=== PATIENT | female | born 1955 | race Caucasian/White ===

== ENCOUNTER → 2020-10-23 13:17 | Outpatient (ROUT) | payer OTHER, SELFPAY ==
[2020-10-23 13:33] LABS: COVID19 -Nasal RAPID POSITIVE (Negative)
== END ==
PROVIDERS: Visit Provider Family Medicine
DX: U07.1 COVID-19 (principal)
CPT/HCPCS: 87635

== ENCOUNTER → 2023-11-03 13:15 | Outpatient (ROUT) | payer OTHER, SELFPAY ==
[2023-11-03 13:23] LABS: Add Manual Diff / Slide Review NO; Basophils Absolute Auto 0 /uL (0-100); Basophils Percent Auto 0.6 % (0-2); Eosinophils Absolute Auto 100 /uL (0-450); Eosinophils Percent Auto 1.6 % (2-4); Hematocrit 39.6 % (36-46); Hemoglobin 13.1 g/dL (12.0-16.0); Lymphocytes Absolute Auto 1600 /uL (1100-4500); Lymphocytes Percent Auto 33.7 % (25-40); Mean Corpuscular HGB Conc 33.1 % (30-36); Mean Corpuscular Hemoglobin 29.6 PG (26-34); Mean Corpuscular Volume 89.6 fL (80-100); Monocytes Absolute Auto 500 /uL (0-900); Monocytes Percent Auto 10.3 % (3-14); Neutrophils Absolute Auto 2600 /uL (1500-7000); Neutrophils Percent Auto 53.8 % (50-75); Platelet Count 304 X10^3/uL (150-400); Red Blood Cell Count 4.42 X10^6/uL (4.0-5.2); Red Cell Distribution Width 13.9 % (11.6-14.8); White Blood Cell Count 4.8 X10^3/uL (4.5-11.0)
[2023-11-03 13:41] LABS: Alanine Aminotransferase 22 IU/L (<35); Albumin 4.3 g/dL (3.5-5.0); Albumin Globulin Ratio 1.4 (1.0-2.8); Alkaline Phosphatase 69 U/L (38-126); Aspartate Aminotransferase 28 IU/L (14-36); Bilirubin Total 0.7 mg/dL (0.2-1.3); Blood Urea Nitrogen 13 mg/dL (7-17); Calcium 9.6 mg/dL (8.4-10.2); Carbon Dioxide 31 mmol/L (22-32); Chloride 102 mmol/L (98-107); Cholesterol 211 mg/dL (140-199); Estimated Glomerular Filt Rate > 60 mL/min (>60); Glucose 91 mg/dL (80-110); HDL Cholesterol 59 mg/dL (40-60); HEMOLYSIS < 15 (0-50); LDL Cholesterol Calculated 130 mg/dL (<100); Potassium 4.8 mmol/L (3.4-5.1); Sodium 136 mmol/L (137-145); Total Protein 7.3 g/dL (6.3-8.2); Triglycerides 112 mg/dL (35-150)
[2023-11-03 13:44] LABS: High Sensitivity CRP - Cardiac 1.1 mg/L (1.0-3.0)
[2023-11-03 13:47] LABS: Erythrocyte Sedimentation Rate 5 MM/HR (0-20)
[2023-11-03 14:12] LABS: Thyroid Stimulating Hormone 2.23 uIU/mL (0.47-4.68)
== END ==
PROVIDERS: Visit Provider Family Medicine
DX: Z00.00 Encounter for general adult medical examination without abnormal findings (principal); M85.80 Other specified disorders of bone density and structure, unspecified site; R09.89 Other specified symptoms and signs involving the circulatory and respiratory systems; R68.84 Jaw pain
CPT/HCPCS: 80053; 80061; 84443; 85025; 85651; 86140

== ENCOUNTER → 2023-11-07 12:14 | Outpatient (CLI) | payer OTHER, SELFPAY ==
--- NOTE | 2023-11-07 12:17 | DI.US.S_ITS ---
PROCEDURE: US PELVIC COMPLETE INDICATIONS: Excessive bleeding Bruit R CAROTID TECHNIQUE: Real-time scanning was performed of the pelvic organs, with image documentation. Additional endovaginal scanning was necessary due to incomplete visualization of the adnexal and endometrial structures by transabdominal scanning. COMPARISON: None. FINDINGS: Uterus: Uterus is anteverted and normal in size at 6.1 x 5.0 x 3.7 cm. The myometrium is homogeneous. The endometrium measures 22 mm combined thickness. Endometrium is heterogeneous. Possible filling defect with vascular stalk measuring 1.4 x 1.8 x 1.3 cm. Ovaries: The right ovary measures 2.3 x 1.9 x 1.6 cm, with a calculated ovarian volume of 3.7 cc. Left ovary not visualized due to atrophy. Simple appearing right ovarian cystic lesion measuring 0.8 x 0.9 x 0.8 cm. Other: No pathologic free abdominal or pelvic fluid. IMPRESSION: Thickened endometrium, with heterogeneous appearance. Possible filling defect with a vascular stalk measuring 1.4 x 1.8 x 1.3 cm, possibly a polyp. Malignancy is also consideration. Consider tissue sampling. O-RADS 2 right ovarian cyst. We strive to produce accurate, complete, and clear reports of imaging services. To assist us in improving patient care, this report was composed using standard report templates and voice recognition software. Therefore, it may contain abnormal punctuation, insertions and/or omissions. Occasional wrong-word or sound-alike substitutions may occur. Though we review the report and make efforts to correct it, we do recommend that the report be read carefully in proper context to recognize any text inaccuracies. Dictated by: Carlos Orr M.D. on 11/07/2023 at 16:56 Approved by: Carlos Orr M.D. on 11/07/2023 at 16:58
--- NOTE | 2023-11-07 12:17 | DI.US.S_ITS ---
PROCEDURE: US CAROTID DOPPLER BI INDICATIONS: Excessive bleeding Bruit R CAROTID TECHNIQUE: Color and pulse Doppler interrogation was performed of both carotid systems, with image documentation and velocity measurements. COMPARISON: None. FINDINGS: Stenosis calculations are based on SRU (Society of Radiologists in Ultrasound) criteria. Right side: Brachial blood pressure: 142/74 mm Hg. Common carotid artery peak systolic velocity: 84 cm/sec. Internal carotid artery peak systolic velocity: 110 cm/sec. Internal carotid artery end diastolic velocity: 41 cm/sec. External carotid artery peak systolic velocity: 65 cm/sec. ICA/CCA peak systolic ratio: 1.3 . Amador scale imaging description: No significant plaque Percent internal carotid artery stenosis: Less than 50 percent stenosis . Vertebral artery: Flow direction is antegrade. Left side: Brachial blood pressure: 134/71 mm Hg. Common carotid artery peak systolic velocity: 109 cm/sec. Internal carotid artery peak systolic velocity: 116 cm/sec. Internal carotid artery end diastolic velocity: 61 cm/sec. External carotid artery peak systolic velocity: 95 cm/sec. ICA/CCA peak systolic ratio: 0.9 . Amador scale imaging description: No significant atherosclerotic plaque Percent internal carotid artery stenosis: Less than 50 percent stenosis . Vertebral artery: Flow direction is antegrade. IMPRESSION: Less than 50 percent stenosis of the internal carotid arteries bilaterally. Dictated by: Earl Arango M.D. on 11/07/2023 at 14:49 Approved by: Earl Arango M.D. on 11/07/2023 at 14:52
== END ==
LOC: US 12:16
PROVIDERS: Referring Provider Family Medicine; Visit Provider Family Medicine
DX: I65.23 Occlusion and stenosis of bilateral carotid arteries (principal); R09.89 Other specified symptoms and signs involving the circulatory and respiratory systems; N95.0 Postmenopausal bleeding; R93.89 Abnormal findings on diagnostic imaging of other specified body structures; N83.201 Unspecified ovarian cyst, right side
CPT/HCPCS: 76830; 76856; 93880

== ENCOUNTER 2024-01-09 12:28 | Day surgery (SDC) | payer OTHER, SELFPAY ==
[2024-01-08 15:16] VITALS: BMI 28.8
--- NOTE | 2024-01-09 | PATH_ITS ---
[facility] Accession Number: [id number] No. of containers..02 Tissue . 01 Material submitted: . PART A: endocervix - ENDOCERVICAL CURETTINGS PART B: endometrium - ENDOMETRIAL CURETTINGS . 01 Diagnosis: A. ENDOCERVICAL CURETTINGS: Minute neoplastic tissue fragments morphologically similar to those in the endometrial tumor (part B). Background fibroglandular tissue and detached strips of glandular epithelium; negative for significant atypia. . B. ENDOMETRIAL CURETTINGS: Adenocarcinoma, favor endometrial origin, endometrioid type. Favor FIGO Grade 2-3. Focal clear cell change and squamous differentiation are present. ENZO 01/15/2024 1625 Local . 01 Comment: Part B: As part of ongoing quality control chemist, this case is also reviewed by Dr. Makenzie Jacobsen, who concurs with the given interpretation. . Dr. Maribell Recinos discussed results with Dr. Delmar Ibanez's triage nurse, on 01-15-24 at approximately 3:45 p.m. . 01 Electronically signed: . Maribell Recinos MD, Pathologist NPI- [id number] . 01 Gross description: . Part A: ENDOCERVICAL CURETTINGS: Received in formalin are minute fragments of mucoid and hemorrhagic material measuring 1.5 x 1.5 x 0.2 cm in aggregate. Submitted in toto in 1 cassette. Part B: ENDOMETRIAL CURETTINGS: Received in formalin are minute fragments of mucoid and hemorrhagic material measuring 2.0 x 2.0 x 0.4 cm in aggregate. Submitted in toto in 1 cassette. /MARLY 01/12/2024 1756 Local . 01 Microscopic: . Immunostains were performed on block B1, to evaluate the cells of interest. The control stains showed appropriate reactivity. . RESULTS: PAX8: Positive. WT1: Negative. Napsin A: Rare positive. P53: Weak positive / low expression. ER: Strongly positive. OH: Strongly positive. P16: Patchy positive. AJ: Strongly, diffusely positive. . The neoplastic cells are positive for AJ, PAX8, ER, and OH, with patchy p16 positivity, and low p53 expression. The neoplasm is negative for WT1 with rare foci of Napsin A staining. These findings mitigate against an ovarian primary site, clear cell carcinoma, an endocervical origin, or a serous phenotype. The findings are most consistent with a carcinoma of endometrial origin. . . * This test was developed and its performance characteristics determined by [facility]. It has not been cleared or approved by the U.S. Food and Drug Administration. The FDA has determined that such clearance or approval is not necessary. This test is used for clinical purposes. It should not be regarded as investigational or for research. . 01 Pathologist provided ICD-10: C54.1 . 01 CPT . 150849, 004870, W02749, W11606 Specimen Comment: A courtesy copy of this report has been sent to [phone] Performed at: [facility] [address] [place] [address], [place], [place] [id number] MD Immanuel Pratt MD Phone: [phone]
[2024-01-09 12:59] VITALS: BP 156/71; PULSE 66; RESP 16; TEMP 36.2; O2SAT 98; BMI 28.2
[2024-01-09] MEDS: LACTATED RINGERS 1,000 ML 42 ML IV (13:03)
--- NOTE | 2024-01-09 13:40 | PM.PREOP ---
Pre-operative Note COVID-19 COVID-19 status: Not tested Interval Note History & Physical reviewed/Exam performed by Physician: Yes Changes to H&P: No
[2024-01-09] MEDS: ACETAMINOPHEN IV 1,000 MG/100 ML VIAL 400 MG IV (15:20)
--- NOTE | 2024-01-09 15:27 | SUR.OPER ---
Lithotomy on padded OR bed, head on pillow, arms secured on padded arm boards at <90 degrees abduction. Legs secured in padded yellow fins stirrups.
[2024-01-09 16:04] VITALS: BP 152/60; PULSE 64; RESP 18; TEMP 36.8; O2SAT 99
[2024-01-09 16:09] VITALS: BP 143/55; PULSE 58; RESP 13; O2SAT 97
--- NOTE | 2024-01-09 16:11 | PM.GYNOP.1 ---
Operative Date/Time/Diagnoses Date of procedure: 01/09/24 Time of procedure: 15:15 Pre-op diagnosis: Postmenopausal bleeding Thickened endometrium on ultrasound Endometrial mass Post-op diagnosis: same Procedure & Clinicians Procedure: Procedures Operation Date: 01/09/24 11:00 Actual Procedure Side Surgeon p Hysteroscopy, dilation and curettage of the uterus Luisito Jacobsen MD Indications: Mary is a 68-year-old 4 para 2, last normal menstrual period in her early 50s, who is referred by Dr. Marilee Mcelroy for evaluation of postmenopausal spotting which has occurred with the patient on estradiol patch 0.05 mg daily and micronized progesterone 100 mg p.o. q.o.d. x2 weeks twice yearly. In discussing with the patient, apparently she has had intermittent episodes of spotting previously which she attributed to the HRT. Dr. Mcelroy obtained a pelvic ultrasound on 11/07/2023 which shows: FINDINGS: Uterus: Uterus is anteverted and normal in size at 6.1 x 5.0 x 3.7 cm. The myometrium is homogeneous. The endometrium measures 22 mm combined thickness. Endometrium is heterogeneous. Possible filling defect with vascular stalk measuring 1.4 x 1.8 x 1.3 cm. Ovaries: The right ovary measures 2.3 x 1.9 x 1.6 cm, with a calculated ovarian volume of 3.7 cc. Left ovary not visualized due to atrophy. Simple appearing right ovarian cystic lesion measuring 0.8 x 0.9 x 0.8 cm. Other: No pathologic free abdominal or pelvic fluid. IMPRESSION: Thickened endometrium, with heterogeneous appearance. Possible filling defect with a vascular stalk measuring 1.4 x 1.8 x 1.3 cm, possibly a polyp. Malignancy is also consideration. Consider tissue sampling. Patient experienced menarche at age 9 and has had regular predictable periods throughout her reproductive life. She denies intermenstrual bleeding or postcoital bleeding in the past. Paps have always been normal and she has never been diagnosed with human papilloma virus. Due to the presence of a discrete endometrial mass with vascular stalk, random endometrial sampling in office would not the appropriate in this setting. Instead recommend hysteroscopy with polypectomy/resection of endometrial mass and dilation of curettage would provide complete evaluation the endometrial cavity in the endometrial mass noted on ultrasound. Patient understands the rationale for this diagnostic approach and would like to move forward with scheduling. She presents today for preoperative evaluation, counseling, and consent. Surgeon: Luisito Jacobsen Anesthesia Type: General Operative Notes Findings: The endometrium is lush throughout the endometrial cavity with papillary projections, atypical vessels, pseudo hyperplastic changes, and glomerular changes noted highly suspicious for endometrial neoplasia. Closure Type: not applicable Specimen(s): endometrial curettings and other (Endocervical curettings) Estimated blood loss (mL): 20 Blood products transfused: none Procedure in detail: With the patient under general LMA in the modified dorsal lithotomy position, the perineum, vagina, and lower abdomen were prepped and draped in the usual fashion for hysteroscopy with dilation and curettage. A pre-surgical safety time-out was then taken in accordance with [facility] Main OR protocols. A bivalve speculum was inserted in the vagina and the cervix visualized. The anterior lip of the cervix was grasped with a single-tooth tenaculum and the endocervical canal was then dilated to 6 mm diameter. Hysteroscope was placed through the endocervical canal into the endometrial cavity and the cavity was visualized. The diffuse endometrial changes noted above were visualized and the MyoSure Lite device was introduced through the hysteroscope with plans to resect the majority of the abnormal findings for pathologic submission. Unfortunately the MyoSure device was nonfunctional and instead fractional dilation and curettage was accomplished with separate pathologic specimen submitted for the endometrial and endocervical curettings. The tenaculum was then removed from the anterior lip of the cervix and no bleeding was encountered. The speculum was then removed from the vagina and the patient awakened from anesthesia. She was then transferred to the PACU for a period of observation and recovery having tolerated the procedure well. Complications: none Post-operative Condition: stable Disposition: PACU Plan for aftercare: Routine postoperative care with follow-up planned for 2 weeks. Patient informed of findings and significant concern for previously undiagnosed endometrial neoplasia. She will be notified as soon as possible once the pathology result is available.
[2024-01-09 16:15] VITALS: BP 148/52; PULSE 58; RESP 14; O2SAT 100
[2024-01-09 16:29] VITALS: BP 151/65; PULSE 71; RESP 16; TEMP 36.6; O2SAT 97
--- NOTE | 2024-01-09 17:12 | SUR.PREOP ---
20g to right arm dc'ed. Catheter intact. No issues
== END 2024-01-09 16:43 | disposition home or self-care (01) ==
PROVIDERS: PCP Family Medicine; Referring Provider Obstetrics & Gynecology; Visit Provider Obstetrics & Gynecology
PROC: 0UDB8ZZ Extraction of Endometrium, Via Natural or Artificial Opening Endoscopic (ICD-10-PCS; CPT 58558; principal; 2024-01-09 11:00)
DX: C54.1 Malignant neoplasm of endometrium (principal)
CPT/HCPCS: 58558; J0136; J1100; J1885; J2405; J2704

== ENCOUNTER → 2024-11-09 12:22 | Outpatient (ROUT) | payer OTHER, SELFPAY ==
[2024-11-09 12:43] LABS: Alanine Aminotransferase 21 IU/L (<35); Albumin 4.6 g/dL (3.5-5.0); Albumin Globulin Ratio 1.8 (1.0-2.8); Alkaline Phosphatase 65 U/L (38-126); Aspartate Aminotransferase 41 IU/L (14-36); BUN Creatinine Ratio 20.3 (6-22); Blood Urea Nitrogen 12 mg/dL (7-17); Calcium 9.3 mg/dL (8.4-10.2); Carbon Dioxide 26 mmol/L (22-32); Chloride 103 mmol/L (98-107); Cholesterol 218 mg/dL (140-199); Estimated Glomerular Filt Rate > 60 mL/min (>60); Globulin 2.6 g/dL (1.7-4.1); Glucose 89 mg/dL (80-110); HDL Cholesterol 65 mg/dL (40-60); LDL Cholesterol Calculated 136 mg/dL (<100); Potassium 4.7 mmol/L (3.4-5.1); Sodium 138 mmol/L (137-145); Total Protein 7.2 g/dL (6.3-8.2); Triglycerides 84 mg/dL (35-150)
[2024-11-09 12:46] LABS: HEMOLYSIS 51 (0-50)
[2024-11-09 13:13] LABS: Thyroid Stimulating Hormone 1.65 uIU/mL (0.47-4.68)
[2024-11-09 14:35] LABS: Vitamin D 25 Hydroxy (D3) 41.9 ng/mL (30.0-100.0)
== END ==
PROVIDERS: PCP Family Medicine; Visit Provider Family Medicine
DX: Z00.00 Encounter for general adult medical examination without abnormal findings (principal); M85.80 Other specified disorders of bone density and structure, unspecified site; R03.0 Elevated blood-pressure reading, without diagnosis of hypertension
CPT/HCPCS: 80053; 80061; 82306; 84443